=== PATIENT | female | born 1955 ===

== ENCOUNTER 2024-01-14 11:51 | Emergency (ER) | payer OTHER, SELFPAY ==
[2024-01-14 11:57] VITALS: BP 137/73; PULSE 74; RESP 14; TEMP 37.1; O2SAT 95; BMI 21.4
--- NOTE | 2024-01-14 12:12 | DI.CT.S_ITS ---
PROCEDURE: CT CHEST WO CON INDICATIONS: Left sided chest wall contusion s/p fall TECHNIQUE: Noncontrast 5 mm thick sections acquired from the pulmonary apices to the posterior costophrenic angles. 1 mm lung window, 5 mm thick coronal and sagittal and 7 mm axial MIP reformats were then acquired. For radiation dose reduction, the following was used: automated exposure control, adjustment of mA and/or kV according to patient size. COMPARISON: [facility], , CT THORAX W/O CONTRAST, 03/08/2023, 10:02. FINDINGS: Image quality: Diagnostic. Lower Neck: No enlarged lymph nodes. Thyroid: No thyroid nodules which require sonographic follow up, per consensus guidelines. Axillae: No enlarged lymph nodes. Chest Wall: Unremarkable. Bones: Unremarkable except for a a single bridging osteophyte projecting posteriorly into the spinal canal at the low thoracic spine best seen on the sagittal reconstruction imaging series 9, image 62. This causes moderately severe spinal stenosis focally. Lungs and Pleura: No pneumothorax or pleural effusions. No new consolidation or new suspicious nodules. There has been chronic atelectasis involving the right middle lobe medial and lateral segments. The medial segmental bronchus is patent, the lateral subsegmental bronchi are not aerated, as was previously the case in March of this year. The morphology and overall appearance has not changed. Additionally, a 1 cm focus of subsegmental alveolar radiodensity is again seen posterolateral right lower lobe with reference to the March CT scanning elsewhere. Heart: Heart size is normal. No pericardial effusion. Thoracic Vessels: The aorta and pulmonary arteries demonstrate normal size. Mediastinum and Erica: No enlarged lymph nodes. Esophagus: No wall thickening. No hiatal hernia. Upper Abdomen: Visualized upper abdomen solid organs and bowel loops appear normal. A previously present ovoid low-density right adrenal nodule having of Hounsfield unit radiodensity of -11 is again noted. It measures only 1.6 x 2.2 cm, stable over time. IMPRESSION: No trauma found. Stable appearance of chronic atelectasis right middle lobe. Etiology is uncertain but there has been virtually no change from March of this year. Also, no change in a subsolid pulmonary nodule posterolateral right lower lobe. One additional noncontrast low-dose CT follow-up in 6 months from now is recommended to confirm stability of appearance over time. A single posterior intervertebral bridging osteophyte is noted causing moderately severe focal spinal stenosis at the low thoracic spinal canal, also stable over time. Dictated by: William Rivera M.D. on 01/14/2024 at 13:12 Approved by: William Rivera M.D. on 01/14/2024 at 13:23
[2024-01-14] MEDS: KETOROLAC 30 MG/ML VIAL IM (12:30)
--- NOTE | 2024-01-14 13:37 | ED_ITS ---
HPI - Fall <John Rainey PA-C - Last Filed: 01/14/24 13:49> General Chief Complaint: Fall Stated Complaint: fall, rib pain Time Seen by Provider: 01/14/24 12:10 Source: patient Mode of arrival: Ambulatory History of Present Illness HPI Narrative: This patient is a 68-year-old female that apparently had her feet tangled up in the bed sheets at her house last night and sustained ground level fall striking the left side of her chest wall. She has had discomfort with inspiration, palpation and rotation of the chest. She is concerned about a possible rib fracture. She denies head strike, neck pain, back pain, abdominal pain, nausea, vomiting, blurred vision know if she taking warfarin or other related blood thinners. No treatments have been tried for this. Patient has not seen her PCP for today's chief complaint. Related Data Home Medications Medication Instructions Recorded Confirmed ASPIRIN (Aspirin Low Dose) 81 mg PO Q DAY ##0 11/19/08 01/05/24 Cetirizine Hydrochloride (Zyrtec) 10 mg PO Q DAY ##0 11/19/08 01/05/24 Esomeprazole Magnesium (Nexium) 20 mg PO Q DAY ##0 11/19/08 01/05/24 Fluticasone Propionate/Salme 1 dose IH BID ##0 11/19/08 01/05/24 (Advair Diskus 500/50) latanoprost 0.005 % eye drops, EYE-BOTH .nightly 02/25/23 01/05/24 emulsion metoprolol tartrate 75 mg tablet 75 mg PO DAILY 02/25/23 01/05/24 tiotropium bromide 2.5 2 inh inhalation QAM 02/25/23 01/05/24 mcg/actuation mist for inhalation (Spiriva Respimat) Previous Rx's Medication Instructions Recorded ipratropium 0.5 mg-albuterol 3 mg 3 ml inhalation BID #540 mL 10/19/23 (2.5 mg base)/3 mL nebulization soln tizanidine 2 mg tablet 2 mg PO TID PRN muscle spasticity 01/14/24 #20 tabs Allergies Allergy/AdvReac Type Severity Reaction Status Date / Time Iodinated Contrast Media Allergy Severe Diffiulty Verified 01/05/24 11:29 breathing Review of Systems <John Rainey PA-C - Last Filed: 01/14/24 13:49> Review of Systems Narrative: General: See HPI MSK: See HPI All other review of systems have been reviewed and are ultimately negative unless otherwise stated in the HPI. Patient History <John Rainey PA-C - Last Filed: 01/14/24 13:49> Social History Smoking Status: Current some day smoker Smoking Status: Current some day smoker tobacco type: cigarettes alcohol intake frequency: a few times a week Alcohol type: beer Substance Use Type: does not use Exam <John Rainey PA-C - Last Filed: 01/14/24 13:49> Initial Vital Signs Initial Vital Signs: Vital Signs Temperature 98.7 F 01/14/24 11:57 Pulse Rate 74 01/14/24 11:57 Respiratory Rate 14 01/14/24 11:57 Blood Pressure 137/73 01/14/24 11:57 Pulse Oximetry 95 01/14/24 11:57 Oxygen Delivery Method Room Air 01/14/24 11:57 Const General: cooperative, healthy appearing, comfortable, well developed and well groomed [facility] Head: normal to inspection and normocephalic Eyes General: Yes appearance normal, both eyes and all related structures Visual Koenig: normal visual koenig by confrontation Alignment and Position: alignment normal and position normal Periorbital: periorbital findings normal Eyelids: eyelids normal Conjunctivae: conjunctivae normal Sclera: sclerae normal Pupils: PERRL, normal by confrontation and accommodation normal EOM: EOM intact bilaterally Neck Neck: normal visual inspection, full ROM, no meningeal signs, trachea midline and supple Chest Chest: tenderness (Left-sided chest wall over ribs number 3, 4 and 5) Resp Effort & Inspection: normal respiratory effort and able to speak in complete sentences Auscultation: clear to auscultation bilaterally Cardio Rate: regular rate Rhythm: regular rhythm Heart Sounds: S1 normal and S2 normal Back/Spine/Pelvis Back: normal to inspection Thoracic/Lumbar Spine: thoracic and lumbar spine normal to inspection Skin General: no rashes or lesions noted, elasticity normal and turgor normal Neuro General: patient alert, patient awake, patient oriented x3, gait normal, moves all extremities, no meningeal signs, no focal motor deficits and CN's II-XI intact bilaterally Extrem General: normal to inspection, full ROM, capillary refill normal, normal exam except as noted, no joint enlargement and no clubbing, cyanosis or edema Psych Appearance: grossly normal and well kempt Mental Status: mental status grossly normal Speech and Movement: speech and movement normal Mood: congruent mood Affect: normal affect Attitude: cooperative <Clinton Auguste DO - Last Filed: 01/14/24 13:54> Initial Vital Signs Initial Vital Signs: Vital Signs Temperature 98.7 F 01/14/24 11:57 Pulse Rate 74 01/14/24 11:57 Respiratory Rate 14 01/14/24 11:57 Blood Pressure 137/73 01/14/24 11:57 Pulse Oximetry 95 01/14/24 11:57 Oxygen Delivery Method Room Air 01/14/24 11:57 Course <John Rainey PA-C - Last Filed: 01/14/24 13:49> Course Course Narrative: Patient was seen and examined. She was offered Toradol IM which she was administered 30 mg. She also underwent a CT scan of the chest without contrast. See results below. Patient was notified of the negative findings and then prepped for discharge home. Orders Ordered: ED Orders 01/14/24 12:12 CT chest wo con Stat Discontinued Medications Ketorolac Tromethamine (Ketorolac 30 Mg/Ml Vial) 30 mg IM NOW ONE Stop: 01/14/24 12:13 Last Admin: 01/14/24 12:30 Dose: 30 mg Documented By: AURELIA Vital Signs Vital signs: Vital Signs - 8 hr 01/14/24 11:57 01/14/24 13:48 Temperature 98.7 F Pulse Rate 74 72 Respiratory Rate 14 18 Blood Pressure 137/73 Pulse Oximetry 95 96 Oxygen Delivery Method Room Air Room Air <Clinton Auguste DO - Last Filed: 01/14/24 13:54> Orders Ordered: ED Orders 01/14/24 12:12 CT chest wo con Stat Discontinued Medications Ketorolac Tromethamine (Ketorolac 30 Mg/Ml Vial) 30 mg IM NOW ONE Stop: 01/14/24 12:13 Last Admin: 01/14/24 12:30 Dose: 30 mg Documented By: AURELIA Vital Signs Vital signs: Vital Signs - 8 hr 01/14/24 11:57 01/14/24 13:48 Temperature 98.7 F Pulse Rate 74 72 Respiratory Rate 14 18 Blood Pressure 137/73 Pulse Oximetry 95 96 Oxygen Delivery Method Room Air Room Air MDM - Fall <John Rainey PA-C - Last Filed: 01/14/24 13:49> Medical Records Attestation: I reviewed the patient's medical records. Imaging Data CT scan - chest: Radiologist's Impression: No acute rib fracture, pneumothorax or hemopneumothorax. [facility] Narrative Medical decision making narrative: At this time, the patient appears to have sustained a chest wall contusion status post ground level fall. I do not believe that she has sustained a rib fracture, pneumothorax or hemopneumothorax. She states that she had a pneumothorax on the right which this appears to have resolved as well. She can initiate Tylenol every 8 hours as needed as well as low-dose tizanidine 2 mg up to 3 times a day as needed which I will prescribe. Patient understands the treatment plan. There were no additional questions at the time of discharge and she will follow up as requested. Discharge Plan Departure Patient Disposition: Home Clinical Impression: Ground-level fall Chest wall contusion Qualifiers: Encounter type: initial encounter Laterality: left Qualified Code(s): S20.212A - Contusion of left front wall of thorax, initial encounter Instructions: How to Prevent Falls Activity Restrictions/Additional Instructions: Apply moist heat to the affected area 10 minutes at a time 5 times a day Start the muscle relaxer today as prescribed and take only as needed up to 3 times a day Expect to be sore for possibly up to 1-2 weeks Follow up with your PCP next week as a recheck Consider taking Tylenol every 8 hours as needed for additional pain control You may want to consider a rib belt and use only during the day but not at night as this can cause pneumonia Return here for any new, emergent concerns or if you worsen in any way Prescriptions: New tizanidine 2 mg tablet 2 mg PO TID PRN (Reason: muscle spasticity) Qty: 20 0RF No Action ASPIRIN (Aspirin Low Dose) 81 mg PO Q DAY Qty: 0 Cetirizine Hydrochloride (Zyrtec) 10 mg PO Q DAY Qty: 0 Esomeprazole Magnesium (Nexium) 20 mg PO Q DAY Qty: 0 Fluticasone Propionate/Salme (Advair Diskus 500/50) 1 dose IH BID Qty: 0 metoprolol tartrate 75 mg tablet 75 mg PO DAILY Spiriva Respimat 2.5 mcg/actuation mist 2 inh inhalation QAM latanoprost 0.005 % drops, emulsion EYE-BOTH .nightly ipratropium-albuterol 0.5 mg-3 mg(2.5 mg base)/3 mL solution for nebulization 3 ml inhalation BID Qty: 540 3RF Referrals: [facility], [Other] Stand Alone Forms: Patient Portal/API/Survey ED Sign-out <Clinton Auguste, - Last Filed: 01/14/24 13:54> Cosign ED Attending Cosignature Attestation: Dr Auguste Co-Sign Statement: I was available for consultation during this patient's emergency department visit. This chart is signed by myself for administrative purposes only. I did not have direct contact with this patient during this visit. They were seen independently by the APC.
[2024-01-14 13:48] VITALS: PULSE 72; RESP 18; O2SAT 96
== END 2024-01-14 13:51 | disposition home or self-care (01) ==
PROVIDERS: Emergency Provider Physician Assistant
DX: S20.212A Contusion of left front wall of thorax, initial encounter (principal); W18.00XA Striking against unspecified object with subsequent fall, initial encounter
CPT/HCPCS: 71250; 96372; 99283; 99284; J1885